=== PATIENT | male | born 1950 | race Two or more races ===

== ENCOUNTER 2017-04-29 13:21 | Outpatient (CLI) | payer MEDICARE, OTHER ==
[~2017-04-29 13:21] MED LIST: ASPIRIN-LOW81 MG ORAL; CRESTOR10 M2 ORAL; FISH OIL500 MG PO; IRON325 M2 PO; KLONOPIN1 MG ORAL; LACTULOSE20 GM/301 ORAL; LINZESS145 MCG PO; METFORMIN HCL850 M1 ORAL; NEXIUM40 MG ORAL; PROPRANOLOL HCL40 MG ORAL; VERAPAMIL HCL80 MG ORAL
[2017-04-29] MEDS ORDERED: METFORMIN HCL500 M1 ORAL (13:38)
[2017-04-29] MEDS ORDERED: PPI (13:38)
[2017-04-29 13:39] VITALS: BP 129/67
--- NOTE | 2017-04-29 15:11 | GI Progress Note ---
Assessment/Plan Problems: (1) Diabetes ICD Codes: E11.9 - Diabetes SNOMED: 60469214 (2) Constipation ICD Codes: K59.00 - Constipation SNOMED: 41184322 (3) Hemorrhoids, internal ICD Codes: K64.8 - Other hemorrhoids SNOMED: 57894904 (4) Abnormal weight loss ICD Codes: R63.4 - Abnormal weight loss SNOMED: 727871422 (5) Gastritis ICD Codes: K29.70 - Gastritis, unspecified, without bleeding SNOMED: 1290822 Status: stable Status Narrative Seen with Dr. Ng. Assessment/Plan + ETOH ?IBS recommend Align cont linzess RTC x 6 months Subjective Subjective Abdominal pain Constipation, taking linzess 290 Abdominal Bloating appetite loss, fair weight loss New onset DM Objective Last 24 Hour Vital Signs Date Time Temp Pulse Resp B/P Pulse Ox O2 Delivery O2 Flow Rate FiO2 04/29/17 13:39 98.3 60 16 129/67 General Appearance: no apparent distress, alert Cardiovascular: normal rate Respiratory/Chest: normal breath sounds, no respiratory distress Abdominal Exam: normal bowel sounds, non tender, soft Genitourinary/Rectal: normal genital exam Extremities: normal range of motion Karen Mitchell N.P. Apr 29, 2017 15:11
[2017-04-29] MEDS ORDERED: LINZESS290 MCG PO (15:34)
== END 2017-04-29 14:10 | disposition home or self-care (01) ==
LOC: PAN 13:21
DX: E11.9 Type 2 diabetes mellitus without complications (principal); K59.00 Constipation, unspecified; K64.8 Other hemorrhoids; R63.4 Abnormal weight loss; K29.70 Gastritis, unspecified, without bleeding
CPT/HCPCS: 99211

== ENCOUNTER 2017-12-17 13:57 | Outpatient (CLI) | payer MEDICARE, OTHER ==
[~2017-12-17 13:57] MED LIST changes: +LINZESS290 MCG PO; +METFORMIN HCL500 M1 ORAL; +PPI
--- NOTE | 2017-12-17 16:08 | GI Progress Note ---
Assessment/Plan Problems: (1) Colonoscopy planned SNOMED: 669731348 (2) Constipation ICD Codes: K59.00 - Constipation SNOMED: 86216309 (3) Hemorrhoids, internal ICD Codes: K64.8 - Other hemorrhoids SNOMED: 19100383 Status: stable Status Narrative Seen with Dr. Ng. Assessment/Plan s/p EGD/colonoscopy 2014 with polyps x 4 and gastritis, see full report. EGD/colonoscopy scheduled 12/23/17. - CLD & (Nulytely/Suprep/Movi-Prep) prep instructions given and acknowledged by patient. - NPO @ MO day prior procedure explained. Trial Rx trulance Subjective Subjective abdominal pain, lower >> occasional chronic constipation >> taking linzess 290mcg with little effect. Objective T 98.6 BP 111/65 P 63 97 RA General Appearance: WD/WN, no apparent distress, alert Cardiovascular: normal rate Respiratory/Chest: normal breath sounds, no respiratory distress Abdominal Exam: normal bowel sounds, non tender, soft Extremities: normal range of motion, non-tender Karen Mitchell N.P. Dec 17, 2017 16:08
== END 2017-12-17 14:30 | disposition home or self-care (01) ==
LOC: PAN 13:57
DX: K59.00 Constipation, unspecified (principal); K64.8 Other hemorrhoids
CPT/HCPCS: 99211

== ENCOUNTER 2017-12-23 07:17 | Day surgery (SDC) | payer MEDICARE, OTHER ==
[~2017-12-23] VITALS: Ht 167.6 cm; Wt 75.7 kg
[2017-12-23] VITALS (10 sets, daily range): BP systolic 124–142; BP diastolic 73–84
--- NOTE | 2017-12-23 07:32 | Anethesia Preoperative Eval ---
Anesthesia Pre-op PMH/ROS General Date of Evaluation: Dec 23, 2017 Time of Evaluation: 07:31 Anesthesiologist: aisha ASA Score: ASA 3 Mallampati Score Class I : Soft palate, uvula, fauces, pillars visible Class II: Soft palate, uvula, fauces visible Class III: Soft palate, base of uvula visible Class IV: Only hard plate visible Mallampati Classification: Class II Surgeon: preston Diagnosis: gerd Surgical Procedure: egd/colono Anesthesia History: none Social History: current smoker Family History: no anesthesia problems Allergies: Coded Allergies: No Known Allergies (Unverified , 12/14/14) Medications: see eMAR Past Medical History Cardiovascular: Reports: HTN Pulmonary: Reports: other - lung cancer Gastrointestinal/Genitourinary: Reports: GERD Endocrine: Reports: DM HEENT: Reports: cataract (L), cataract (R) Anesthesia Pre-op Phys. Exam Physician Exam Last Vital Signs Date Time Temp Pulse Resp B/P (MAP) Pulse Ox O2 Delivery O2 Flow Rate FiO2 12/23/17 08:07 97.7 67 20 142/80 96 Room Air 97.7 Constitutional: NAD Neurologic: CN 2-12 intact Cardiovascular: RRR Respiratory: CTA Airway Exam Mallampati Score: Class II MO: full Neck: supple TMD: 2fb ROM: full Teeth: missing Dentures: upper, lower Anesthesia Pre-op A/P Risk Assessment & Plan Assessment: asa3 Plan: mac Status Change Before Surgery: No Pre-Antibiotics Drug: OBED Boyd Dec 23, 2017 07:31
[2017-12-23] MEDS ORDERED: Midazolam 2mg/2ml Inj IVP PRN (07:45)
[2017-12-23] MEDS ORDERED: Atropine Inj 1mg/10ml Syr IV PRN (07:45)
[2017-12-23] MEDS ORDERED: DiphenhydrAMINE 50mg/ml Inj IVP PRN (07:45)
[2017-12-23] MEDS ORDERED: fentaNYL 100 mcg/2 mL IV PRN (07:45)
--- NOTE | 2017-12-23 08:15 | Pre-Procedure Note/Attestation ---
Pre-Procedure Note/Attestation Complete Prior to Procedure Planned Procedure: not applicable Procedure Narrative: esophagogastroduodenoscopy and colonoscopy Indications for Procedure Pre-Operative Diagnosis: screening colonoscopy, GERD Attestation I attest that I discussed the nature of the procedure; its benefits; risks and complications; and alternatives (and the risks and benefits of such alternatives ), prior to the procedure, with the patient (or the patient's legal appeals representative). I attest that, if there was a reasonable possibility of needing a blood transfusion, the patient (or the patient's legal appeals representative) was given the [facility] standardized written summary, pursuant to the Eduardo Dobson Blood Safety Act ([place] Health and Safety Code # 1645, as amended). I attest that I re-evaluated the patient just prior to the surgery and that there has been no change in the patient's H&P, except as documented below: [place] Dec 23, 2017 08:15
--- NOTE | 2017-12-23 08:16 | Short Stay Surgery H&P ---
History of Present Illness History of Present Illness Chief Complaint see recent office note HPI Satya Rosales is a 67 year old male who was admitted on for Colon Polyps, Abdominal Pain Patient History Allergies: Coded Allergies: No Known Allergies (Unverified , 12/14/14) PAST MEDICAL HISTORY: Past Surgeries: Social History: Medication History Scheduled Aspirin (Aspirin EC), 81 MG ORAL DAILY, (Reported) Clonazepam* (Klonopin*), 1 MG ORAL QHS, (Reported) Linaclotide (Linzess), 290 MCG PO DAILY, (Reported) Metformin Hcl* (Metformin Hcl*), 500 MG ORAL DAILY, (Reported) Equality-3 Fatty Acids (Fish Oil), 500 MG PO PRN, (Reported) Propranolol Hcl* (Inderal*), 40 MG ORAL DAILY, (Reported) Verapamil Hcl* (Calan*), 80 MG ORAL TID, (Reported) Miscellaneous Medications [Ppi], (Reported) Discontinued Medications Ferrous Sulfate (Iron), 325 MG PO DAILY, (Reported) Discontinued Reason: Pt stopped taking med Physical Exam Vital Signs Last Vital Signs Date Time Temp Pulse Resp B/P (MAP) Pulse Ox O2 Delivery O2 Flow Rate FiO2 12/23/17 08:07 97.7 67 20 142/80 96 Room Air 97.7 Plan Attestation Are the patient's medical conditions optimized for surgery? [place] Dec 23, 2017 08:16
[2017-12-23] MEDS ORDERED: Atropine Sulfate 0.4mg/ml inj ONE (08:30)
[2017-12-23] MEDS ORDERED: Lidocaine 1% MPF 10mg/ml 5ml ONE (08:30)
[2017-12-23] MEDS ORDERED: Propofol 200mg/20ml IV ONE (08:30)
--- NOTE | 2017-12-23 09:14 | Endoscopy Procedure Note ---
Endoscopy Procedure Note General Indication for Procedure: screening colonoscopy, GERD Procedures Performed: EGD, colonoscopy Operative Findings/Diagnosis: gastritis, diverticulosis, hemorrhoids Specimen: yes Pt Tolerated Procedure Well: Yes Estimated Blood Loss: none Anesthesia Anesthesiologist: rosario Anesthesia: MAC Inserted Devices Implant(s) used?: No Quality Quality of Bowel Preparation: Good Did scope reach the cecum?: Yes Was there any complications?: No GI Core Measures 50 yrs or older w/o bx or poly: No 10yrs. F/U not recommended: Yes If not recommended, why?: Above average risk 10 yrs. F/U needed: Yes 18 years or older w/prev. colo: Yes <3yrs. since last colonoscopy: No [place] Dec 23, 2017 09:14
--- NOTE | 2017-12-23 10:10 | Immediate Post-Op Evaluation ---
Immediate Post-Op Evalulation Immediate Post-Op Evalulation Procedure: egd/colonoscopy Date of Evaluation: Dec 23, 2017 Time of Evaluation: 09:32 IV Fluids: 550ml 0.9ns Blood Products: none Estimated Blood Loss: negligible Blood Pressure Systolic: 126 Blood Pressure Diastolic: 77 Pulse Rate: 62 Respiratory Rate: 18 O2 Sat by Pulse Oximetry: 100 Temperature (Fahrenheit): 98.5 Pain Score (1-10): 0 Nausea: No Vomiting: No Complications none Patient Status: awake, reacts, patent Hydration Status: adequate Drug: OBED Boyd Dec 23, 2017 10:10
--- NOTE | 2017-12-23 10:11 | 48 Hour Post Anesthesia Eval ---
Post Anesthesia Evaluation Procedure: egd/colonoscopy Date of Evaluation: Dec 23, 2017 Time of Evaluation: 09:34 Blood Pressure Systolic: 125 0: 73 Pulse Rate: 65 Respiratory Rate: 18 Temperature (Fahrenheit): 98.5 O2 Sat by Pulse Oximetry: 100 Airway: patent Nausea: No Vomiting: No Pain Intensity: 0 Hydration Status: adequate Cardiopulmonary Status: stable Mental Status/LOC: patient returned to baseline Post-Anesthesia Complications: none Follow-up care needed: N/A OBED RING Dec 23, 2017 10:11
--- NOTE | 2017-12-23 16:45 | Procedure Note ---
DATE OF PROCEDURE: 12/23/2017 SURGEON: Ermias Ng M.D. PROCEDURE: Upper endoscopy with biopsy and colonoscopy with biopsy. ANESTHESIA: Per Dr. Farah. INSTRUMENT: Olympus adult flexible upper endoscope and colonoscope. INDICATION: Screening colonoscopy, chronic GERD, and abdominal pain. REASON FOR PROCEDURE: The procedure, risks, benefits, and possible consequences, including hemorrhage, aspiration, perforation and infection, and alternative treatments, were explained to the patient/legal guardian by Dr. Ermias Ng and the patient/legal guardian understood and accepted these risks. DESCRIPTION OF PROCEDURE: After informed consent was obtained and the patient was adequately sedated, first Olympus upper endoscope was advanced from mouth into the second portion of the duodenum and retroflexion was performed in the stomach. The patient had diffuse gastritis. Random biopsy from antrum and body was obtained to rule out H. pylori infection. At this time, the upper endoscope was retrieved and the patient was turned over for colonoscopy. First, a rectal exam was performed, which was positive for external and internal hemorrhoids. Then, the scope was advanced from rectum into the cecum documented by appendiceal orifice, ileocecal valve, and right upper quadrant palpation. Quality of prep was very good. The patient has significant diverticulosis mostly on the left compared to right. The patient had evidence of multiple diminutive polyps in the rectum, most probably HYPERPLASTIC, two of them were biopsied. Otherwise, no new polyps in this colonoscopy examination. Retroflexion of rectum showed evidence of medium-sized internal hemorrhoids. SUMMARY FINDINGS: 1. Diffuse gastritis, status post biopsy. 2. Two rectal polyps removed. 3. Diverticulosis. 4. Internal and external hemorrhoids. RECOMMENDATIONS: 1. Followup biopsy results and treat accordingly. 2. Repeat colonoscopy in 5 years. Ermias Ng M.D. DR: MARK JOB#: [id number] CC: EMILIA
--- NOTE | 2017-12-27 16:25 | Cardiology Report ---
APPROVED REPORT EKG Measurement Heart [id number] NE 176P39 [id number] Normal sinus rhythm Left axis deviation Inferior-posterior infarct, age undetermined Abnormal ECG
== END 2017-12-23 10:35 | disposition home or self-care (01) ==
LOC: GAS 07:17
DX: Z12.11 Encounter for screening for malignant neoplasm of colon (principal); K21.9 Gastro-esophageal reflux disease without esophagitis; R10.9 Unspecified abdominal pain; K29.50 Unspecified chronic gastritis without bleeding; K62.1 Rectal polyp; K57.30 Diverticulosis of large intestine without perforation or abscess without bleeding; K64.4 Residual hemorrhoidal skin tags; K64.8 Other hemorrhoids; Z79.82 Long term (current) use of aspirin; E11.9 Type 2 diabetes mellitus without complications; Z79.84 Long term (current) use of oral hypoglycemic drugs
CPT/HCPCS: 43239; 45380; 82962; 93005; J0461; J2704; 94003; 94150

== ENCOUNTER 2018-01-07 13:00 | Outpatient (CLI) | payer MEDICARE, OTHER ==
[2018-01-07 13:12] VITALS: BP 121/70
--- NOTE | 2018-01-07 15:49 | GI Progress Note ---
Assessment/Plan Problems: (1) Constipation ICD Codes: K59.00 - Constipation SNOMED: 16553896 Status: stable Status Narrative Seen with Dr. Ng. Assessment/Plan Rx Trulance repeat colonoscopy x 5 years Subjective Subjective constipation >> used to take Linzess, not helping Rx >> trulance works well, but not covered by insurance Objective Last 24 Hour Vital Signs Date Time Temp Pulse Resp B/P (MAP) Pulse Ox O2 Delivery O2 Flow Rate FiO2 01/07/18 13:12 98.8 60 16 121/70 96 98.8 General Appearance: WD/WN, no apparent distress, alert Cardiovascular: normal rate Respiratory/Chest: normal breath sounds, no respiratory distress Abdominal Exam: normal bowel sounds, non tender, soft Extremities: normal range of motion, non-tender Karen Mitchell N.P. Jan 07, 2018 15:49
== END 2018-01-07 13:35 | disposition home or self-care (01) ==
LOC: PAN 13:00
DX: K59.00 Constipation, unspecified (principal)
CPT/HCPCS: 99211